=== PATIENT | female | born 1965 | race Caucasian/White ===

== ENCOUNTER 2020-02-16 08:02 | Day surgery (SDC) | payer OTHER, SELFPAY ==
[~2020-02-16] VITALS: Ht 160 cm; Wt 90.7 kg
[2020-02-16] MEDS ORDERED: MEPERIDINE HCL/PF 100 MG/ML AMP ONE (09:00)
[2020-02-16] MEDS ORDERED: SIMETHICONE 40 MG/0.6 ML ML ONE (09:00)
[2020-02-16] MEDS: MIDAZOLAM HCL 5 MG/5 ML VIAL ONE ×3 (09:34→09:38)
[2020-02-16] MEDS ORDERED: MIDAZOLAM HCL 5 MG/5 ML VIAL ONE (10:05)
[2020-02-16 11:12] VITALS: BP_SYST 130
== END 2020-02-16 10:45 | disposition home or self-care (01) ==
LOC: SDS 08:02 → SMU 08:03 → SDS 10:45
PROVIDERS: ATTEND Colon & Rectal Surgery
DX: Z12.11 Encounter for screening for malignant neoplasm of colon (principal); K64.9 Unspecified hemorrhoids; E78.5 Hyperlipidemia, unspecified; Z20.828 Contact with and (suspected) exposure to other viral communicable diseases
CPT/HCPCS: 45378; 99152; G0378; J2175; J2250; J7030; U0003